=== PATIENT | female | born 1980 | race Caucasian/White ===

== ENCOUNTER 2016-08-31 01:30 | Emergency (ER) | payer SELFPAY ==
[~2016-08-31] VITALS: Ht 152.4 cm; Wt 52.2 kg
[~2016-08-31 01:30] MED LIST: HYDR200T4; TOPI25TA; TRAM50TA2
[2016-08-31] MEDS ORDERED: IV SET PRIMARY 1 EA INFUS.SET MC ONE (01:55)
[2016-08-31] MEDS ORDERED: ONDANSETRON HCL/PF 4 MG/2 ML VIAL ONE (01:55)
[2016-08-31] MEDS ORDERED: IV NS 0.9% 500 ML IV ONE (01:55)
[2016-08-31] MEDS ORDERED: IV NS 0.9% 500 ML BAG IV ONE (02:00)
[2016-08-31] MEDS ORDERED: ONDANSETRON HCL/PF 4 MG/2 ML VIAL IV ONE (02:00)
[2016-08-31 02:02] LABS: BASOPHILS % (AUTO) 0.3 % (0.0-2.0); DIFF TOTAL % 100 %; HEMATOCRIT 40 % (33-45); HEMOGLOBIN 13.3 g/dL (11.5-14.8); LYMPHOCYTES # (AUTO) 0.9 /CMM (0.8-4.8); LYMPHOCYTES % (AUTO) 10.4 % (20.0-44.0); MEAN CORPUSCULAR HEMOGLOBIN 29 PG (26.0-33.0); MEAN CORPUSCULAR HGB CONC 33 g/dl (31.0-36.0); MEAN CORPUSCULAR VOLUME 86 fL (82-100); MONOCYTES # (AUTO) 0.8 /CMM (0.1-1.30); MONOCYTES % (AUTO) 9.6 % (2.0-12.0); NEUTROPHILS # (AUTO) 6.7 /CMM (1.8-8.9); NEUTROPHILS % (AUTO) 79.7 % (43.0-81.0); PLATELET COUNT (AUTO) 566 /CMM (150-450); RED BLOOD CELL COUNT(AUTO) 4.66 MIL/uL (4.0-5.2); WHITE BLOOD COUNT (AUTO) 8.4 K/uL (4.3-11.0)
[2016-08-31 02:11] LABS: ANION GAP 18 (5-14); CALCIUM, SERUM 9.4 mg/dL (8.5-10.1); CARBON DIOXIDE 23 mmol/L (21-32); CHLORIDE 99 mmol/L (98-107); CREATININE 0.7 mg/dL (0.6-1.3); GFR 94 mL/min (>60); GLUCOSE 107 mg/dL (74-106); SODIUM SERUM 137 mmol/L (136-145); UREA NITROGEN, BLOOD 10 mg/dL (7-18)
[2016-08-31] MEDS ORDERED: TRAMADOL HCL 50 MG TABLET ONE (02:13)
[2016-08-31 02:19] LABS: TROPONIN I < 0.017 ng/mL (0.00-0.056)
[2016-08-31] MEDS ORDERED: POTASSIUM CHLORIDE 20 MEQ TAB.PRT.SR PO ONE ×3 (02:21→02:30)
[2016-08-31 02:30] LABS: INR 0.98 (0.87-1.13); PROTHROMBIN TIME 10.6 SECS (9.5-12.7)
[2016-08-31] MEDS ORDERED: TRAMADOL HCL 50 MG TABLET PO ONE (02:30)
[2016-08-31] MEDS ORDERED: CT SWABBABLE VALVE TRANS SET 1 EA INFUS.SET MC ONE (02:43)
[2016-08-31] MEDS ORDERED: IOHEXOL-350 100 ML VIAL IV ONE (02:43)
[2016-08-31] MEDS ORDERED: IV NS 0.9% 250 ML IV ONE (02:43)
[2016-08-31 03:26] VITALS: BP 109/82
== END 2016-08-31 03:27 | disposition home or self-care (01) ==
LOC: ER 01:31
DX: R07.89 Other chest pain (principal); M32.9 Systemic lupus erythematosus, unspecified; Z88.8 Allergy status to other drugs, medicaments and biological substances
CPT/HCPCS: 36415; 71010; 71275; 80048; 84484; 85025; 85378; 85730; 93005; 96374; 99285; A4606; J2405; J7040; J7050; Q9967; Z7610